=== PATIENT | male | born 1975 | race Caucasian/White ===

== ENCOUNTER 2018-04-05 16:48 | Emergency (ER) | payer OTHER ==
[~2018-04-05] VITALS: Ht 177.8 cm; Wt 84.4 kg
[~2018-04-05 16:48] MED LIST: Motion Sickness25 M1 PO; Prednisone20 MG PO
[2018-04-05] MEDS ORDERED: IBUP600 PO (17:58)
[2018-04-05] MEDS ORDERED: CYCL10 PO (17:58)
[2018-04-05] MEDS ORDERED: Voltaren100 GM TOP (17:58)
== END 2018-04-05 18:05 | disposition home or self-care (01) ==
LOC: ER 16:48
DX: G58.9 Mononeuropathy, unspecified (principal); F17.200 Nicotine dependence, unspecified, uncomplicated
CPT/HCPCS: 96372; 99282-25; J1885